=== PATIENT | female | born 2000 | race African-American/Black ===

== ENCOUNTER 2024-10-17 10:58 | Emergency (ER) | payer MEDICAID ==
[~2024-10-17] VITALS: Ht 157.5 cm; Wt 83.1 kg
[2024-10-17 11:16] VITALS: O2SAT 100
[2024-10-17] MEDS: FLUORESCEIN SODIUM 1MG/STRIP BOTHEYE ONE (13:18)
[2024-10-17] MEDS: TETRACAINE 0.5% OPHTH DROPS 4ML BOTHEYE ONE (13:19)
[2024-10-17 15:12] LABS: BASOPHILS % 0.4 % (0.0-2.0); EOSINOPHILS % 0.6 % (0.0-5.0); HEMATOCRIT. 32.7 % (36.0-48.0); HEMOGLOBIN. 11.4 g/dL (12.0-16.0); LYMPHOCYTES % 19.2 % (20.0-50.0); MEAN PLATELET VOLUME 7.8 fl (7.4-10.4); MONOCYTES % 5.4 % (2.0-8.0); NEUTROPHILS % 74.4 % (40.0-76.0); PLATELET 154 x1000/uL (130-400); RED BLOOD CELL COUNT 4.35 mill/uL (4.2-5.4); RED CELL DISTRIBUTION WIDTH 16.3 % (11.6-14.6)
[2024-10-17 15:23] LABS: CREATININE 0.5 mg/dL (0.6-1.0)
[2024-10-17 15:24] LABS: UREA NITROGEN BLOOD 9 mg/dL (9-23)
[2024-10-17 15:29] LABS: HCG SCREEN NEGATIVE
[2024-10-17] MEDS: KETOROLAC 15MG/ML VIAL IM ONE (15:54)
[2024-10-17] MEDS: DIPHENHYDRAMINE 50MG/ML VIAL IV ONE (15:55)
[2024-10-17] MEDS: METOCLOPRAMIDE HCL 10MG/2ML VIAL IV ONE (15:55)
[2024-10-17] MEDS: SODIUM CHLORIDE 0.9% 1,000 ML IV ONE (16:30)
[2024-10-17 17:40] VITALS: BP 128/62; PULSE 68; RESP 16; TEMP 36.6; O2SAT 100
== END 2024-10-17 17:41 | disposition home or self-care (01) ==
LOC: ER 10:58
DX: H11.31 Conjunctival hemorrhage, right eye (principal); D57.1 Sickle-cell disease without crisis; Z88.0 Allergy status to penicillin
CPT/HCPCS: 99284; 96374; 96375; 80048; 84703; 85025; 85044; 36415; 96372; J1885; J1200; J2765